=== PATIENT | female | born 1995 | race Caucasian/White ===

== ENCOUNTER 2022-10-12 13:41 | Day surgery (SDC) | payer BC, OTHER ==
[2022-10-12] MEDS ORDERED: HYDROcodone/Acetaminophen 5/325 mg Tablet ONE (14:24)
[2022-10-12 16:03] VITALS: BMI 31.4
== END 2022-10-12 17:14 | disposition home or self-care (01) ==
LOC: CSHERS 13:41 → CSHLD/OP 15:40
PROVIDERS: ATTEND Obstetrics & Gynecology
DX: O9A.213 Injury, poisoning and certain other consequences of external causes complicating pregnancy, third trimester (principal); S93.401A Sprain of unspecified ligament of right ankle, initial encounter; Z3A.21 21 weeks gestation of pregnancy; Z88.2 Allergy status to sulfonamides; W19.XXXA Unspecified fall, initial encounter
CPT/HCPCS: 99282

== ENCOUNTER 2022-12-18 21:21 | Day surgery (SDC) | payer BC, OTHER ==
[2022-12-18 22:04] VITALS: BMI 32.1
[2022-12-18] MEDS ORDERED: hydrALAZINE 20 MG/ML VIAL SLOW IVP PRN (22:24)
== END 2022-12-19 01:25 | disposition home or self-care (01) ==
LOC: CSHLD/OP 21:21
PROVIDERS: ATTEND Obstetrics & Gynecology
DX: O36.8130 Decreased fetal movements, third trimester, not applicable or unspecified (principal); O26.853 Spotting complicating pregnancy, third trimester; O34.211 Maternal care for low transverse scar from previous cesarean delivery; O99.343 Other mental disorders complicating pregnancy, third trimester; F41.8 Other specified anxiety disorders; Z90.49 Acquired absence of other specified parts of digestive tract; Z91.041 Radiographic dye allergy status; Z88.2 Allergy status to sulfonamides; Z3A.31 31 weeks gestation of pregnancy
CPT/HCPCS: 59025; 76815; 76819; 99282

== ENCOUNTER 2023-01-03 17:43 | Day surgery (SDC) | payer BC, OTHER ==
[2023-01-03 18:58] LABS: Fetal Membranes Rupture No Membranes Rupture (No Rupture)
[2023-01-03] MEDS ORDERED: hydrALAZINE 20 MG/ML VIAL SLOW IVP PRN (21:05)
== END 2023-01-03 20:11 | disposition home or self-care (01) ==
LOC: CSHLD/OP 17:43
PROVIDERS: ATTEND Obstetrics & Gynecology
DX: O41.93X0 Disorder of amniotic fluid and membranes, unspecified, third trimester, not applicable or unspecified (principal); O16.3 Unspecified maternal hypertension, third trimester; F41.8 Other specified anxiety disorders; Z3A.33 33 weeks gestation of pregnancy; Z90.49 Acquired absence of other specified parts of digestive tract; Z88.2 Allergy status to sulfonamides; Z91.040 Latex allergy status; Z87.891 Personal history of nicotine dependence; Z79.899 Other long term (current) drug therapy
CPT/HCPCS: 84112; 87480; 87510; 87660; 99285

== ENCOUNTER 2023-01-06 13:39 | Day surgery (SDC) | payer BC ==
[2023-01-06 14:08] VITALS: BMI 33.0
[2023-01-06] MEDS ORDERED: hydrALAZINE 20 MG/ML VIAL SLOW IVP PRN (14:46)
== END 2023-01-06 17:12 | disposition home or self-care (01) ==
LOC: CSHLD/OP 13:39
PROVIDERS: ATTEND Obstetrics & Gynecology
DX: O26.893 Other specified pregnancy related conditions, third trimester (principal); R10.32 Left lower quadrant pain; O36.8130 Decreased fetal movements, third trimester, not applicable or unspecified; O99.343 Other mental disorders complicating pregnancy, third trimester; F41.8 Other specified anxiety disorders; Z3A.33 33 weeks gestation of pregnancy; Z79.899 Other long term (current) drug therapy; Z91.040 Latex allergy status; Z88.2 Allergy status to sulfonamides; Z90.49 Acquired absence of other specified parts of digestive tract
CPT/HCPCS: 76819; 99282

== ENCOUNTER 2023-01-12 12:17 | Day surgery (SDC) | payer BC, OTHER ==
[2023-01-12 13:10] VITALS: BMI 33.0
[2023-01-12] MEDS ORDERED: hydrALAZINE 20 MG/ML VIAL SLOW IVP PRN (15:31)
== END 2023-01-12 16:45 | disposition home or self-care (01) ==
LOC: CSHLD/OP 12:17
PROVIDERS: ATTEND Obstetrics & Gynecology
DX: O47.03 False labor before 37 completed weeks of gestation, third trimester (principal); O36.8130 Decreased fetal movements, third trimester, not applicable or unspecified; O23.43 Unspecified infection of urinary tract in pregnancy, third trimester; N39.0 Urinary tract infection, site not specified; O99.343 Other mental disorders complicating pregnancy, third trimester; F41.0 Panic disorder [episodic paroxysmal anxiety]; F32.A Depression, unspecified; Z79.899 Other long term (current) drug therapy; Z87.59 Personal history of other complications of pregnancy, childbirth and the puerperium; Z91.040 Latex allergy status; Z88.2 Allergy status to sulfonamides; Z3A.34 34 weeks gestation of pregnancy
CPT/HCPCS: 99282